=== PATIENT | female | born 2000 | race Two or more races ===

== ENCOUNTER 2024-03-14 00:10 | Emergency (ER) | payer OTHER ==
[~2024-03-14] VITALS: Ht 177.8 cm; Wt 70.5 kg
[2024-03-14 00:11] VITALS: BP 138/90; PULSE 80; RESP 20; TEMP 97.8; O2SAT 100
== END 2024-03-14 04:51 | disposition home or self-care (01) ==
LOC: EMS 00:10
DX: S56.912A Strain of unspecified muscles, fascia and tendons at forearm level, left arm, initial encounter (principal); Z88.8 Allergy status to other drugs, medicaments and biological substances; X58.XXXA Exposure to other specified factors, initial encounter; Y93.89 Activity, other specified; Y92.89 Other specified places as the place of occurrence of the external cause; Y99.8 Other external cause status
CPT/HCPCS: 99283